=== PATIENT | female | born 1995 | race African-American/Black ===

== ENCOUNTER 2021-08-15 23:41 | Emergency (ER) | payer BC ==
[2021-08-15 23:53] VITALS: BP 129/87; PULSE 84; TEMP 98; BMI 24.7
[2021-08-16] MEDS ORDERED: DEXAMETHASONE 4 MG TABLET (FP) ONE (00:57)
[2021-08-16] MEDS ORDERED: DEXAMETHASONE 4 MG TABLET (FP) PO ONE (01:00)
[2021-08-16] MEDS: ALBUTEROL SO4 2.5/IPRATROPIUM 0.5 INH SOL 3 ML VIAL.NEB. NEB SCH ×3 (01:01→01:30)
== END 2021-08-16 02:10 | disposition home or self-care (01) ==
LOC: JER 23:41
PROC: 3E0F7GC Introduction of Other Therapeutic Substance into Respiratory Tract, Via Natural or Artificial Opening (ICD-10-PCS; principal; 2021-08-15)
DX: J45.909 Unspecified asthma, uncomplicated (principal)
CPT/HCPCS: 99283-25